=== PATIENT | female | born 1980 | race Caucasian/White ===

== ENCOUNTER 2020-08-07 17:31 | Outpatient (REF) | payer MEDICAID, SELFPAY | END 2020-08-07 17:32 | disposition home or self-care (01) | LOC: HO.LAB 17:31 | PROVIDERS: Visit Provider Internal Medicine | DX: Z20.828 Contact with and (suspected) exposure to other viral communicable diseases (principal) | CPT/HCPCS: C9803; U0003 ==

== ENCOUNTER 2020-11-29 09:01 | Outpatient (REF) | payer MEDICAID, SELFPAY ==
[2020-11-29 09:59] LABS: COVID-19 Test Negative (Negative)
== END 2020-11-29 09:02 | disposition home or self-care (01) ==
LOC: HO.LAB 09:01
PROVIDERS: Visit Provider Internal Medicine
DX: Z20.822 Contact with and (suspected) exposure to COVID-19 (principal)
CPT/HCPCS: 36415; 87635; C9803

== ENCOUNTER 2021-02-05 12:16 | Outpatient (REF) | payer MEDICAID, SELFPAY | END 2021-02-05 12:17 | disposition home or self-care (01) | LOC: HO.LAB 12:16 | PROVIDERS: PCP Internal Medicine; Visit Provider Internal Medicine | DX: Z20.822 Contact with and (suspected) exposure to COVID-19 (principal) | CPT/HCPCS: C9803; U0003; U0005 ==